=== PATIENT | female | born 1995 | race Caucasian/White ===

== ENCOUNTER 2017-03-21 13:30 | Emergency (ER) | payer BC ==
[~2017-03-21] VITALS: Ht 175.3 cm; Wt 72.6 kg
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
--- NOTE | 2017-03-21 13:50 | NUR ---
PT TAKEN FOR XRAY.
--- NOTE | 2017-03-21 14:20 | NUR ---
PT AWAKE, DENIES PAIN. VSS.
[2017-03-21] MEDS ORDERED: ONDANSETRON 4 MG TAB.RAPDIS ONE (14:42)
--- NOTE | 2017-03-21 15:15 | NUR ---
Patient does not wish to proceed with medical care recommended by Dr. Aguilar. Patient given information related to possible complications, up to and including , which could occur as a result of leaving the hospital at this time. Patient verbalizes understanding of risks involved due to leaving against medical advice. Patient has signed AMA form.
[2017-03-21 15:31] VITALS: BP 130/82
== END 2017-03-21 15:31 | disposition left against medical advice (07) ==
LOC: ER 13:32
DX: S13.4XXA Sprain of ligaments of cervical spine, initial encounter (principal); Z91.040 Latex allergy status; Z53.20 Procedure and treatment not carried out because of patient's decision for unspecified reasons; V43.52XA Car driver injured in collision with other type car in traffic accident, initial encounter; Y92.488 Other paved roadways as the place of occurrence of the external cause; Y93.89 Activity, other specified; Y99.8 Other external cause status
CPT/HCPCS: 72050-TC; 72074-TC; A4606; Q0162; Z7610